=== PATIENT | female | born 1965 | race Caucasian/White ===

== ENCOUNTER 2019-01-24 13:13 | Outpatient (CLI) | payer MEDICAID, SELFPAY ==
[2019-01-24 13:52] LABS: Abs Immature Grans 0.02 k/cumm (0.0-0.09); Absolute Basophil Count 0.03 k/cumm (0.0-0.2); Absolute Eosinophil Count 0.19 k/cumm (0.0-0.7); Absolute Lymphocyte Count 2.11 k/cumm (1.2-3.4); Absolute Monocyte Count 0.64 k/cumm (0.11-0.7); Absolute Neutrophil Count 2.95 k/cumm (1.2-6.7); Basophils % 0.5; Eosinophils % 3.2; HGB 13.6 g/dL (12.0-15.5); Immature Grans % 0.3; Lymphocytes % 35.5; Mean Corp. HGB Concentration 33.2 g/dL (32.0-36.0); Mean Corpuscular Hemoglobin 29.8 pg (27.0-33.0); Mean Corpuscular Volume 89.9 fL (80-95); Mean Platelet Volume 9.9 fL (8.0-11.0); Monocytes % 10.8; Neutrophils % 49.7; Platelet Count 267 x1000/uL (130-400); RBC 4.56 m/cumm (4.00-5.20); RBC Distribution Width 12.7 % (11.7-14.6); White Blood Cell Count 5.94 k/cumm (4.4-10.8)
[2019-01-24 14:16] LABS: Iron 141 ug/dL (50-175); Total Iron Binding Capacity 267 ug/dL (250-450); Transferrin Sat 53 % (15-50)
[2019-01-24 14:48] LABS: ALT 29 U/L (12-78); AST 21 U/L (15-37); Albumin 3.9 g/dL (3.4-5.0); Alkaline Phosphatase 93 U/L (46-116); Anion Gap 8.4 mmol/L (3-11); BUN 12 mg/dL (7-18); Bilirubin, Total 0.4 mg/dL (0.2-1.0); CO2 28.6 mmol/L (21.0-32.0); Chloride 105 mmol/L (98-107); Cholesterol 231 mg/dL (50-200); Ferritin 94 ng/mL (8-388); Glucose 87 mg/dL (70-100); HDL Cholesterol 79 mg/dL (40-60); LDL CHOLESTEROL 130 mg/dL (<100); Magnesium 2.1 mg/dL (1.8-2.4); Potassium 4.4 mmol/L (3.5-5.1); Sodium 142 mmol/L (136-145); TSH 0.52 uIU/mL (0.358-3.74); Total Protein 7.3 g/dL (6.4-8.2); Triglyceride 66 mg/dL (30-150); Vitamin B12 680 pg/mL (193-986)
[2019-01-24 15:13] LABS: FREE T4 0.85 ng/dL (0.76-1.46)
[2019-01-24 21:23] LABS: T3,Free 4.1 pg/ml (2.8-5.3)
[2019-01-25 11:50] LABS: Thyroperoxidase Antibody <28 U/mL (<61)
[2019-01-25 13:20] LABS: Thyroglobulin Antibody 20 U/mL (<61)
[2019-01-25 20:59] LABS: Iodine, S 64 ng/mL (40-92)
[2019-01-28 16:45] LABS: Thyroid Stimulating Immunoglob <1.0 TSI index (<=1.3)
== END 2019-01-24 13:33 ==
PROVIDERS: PCP Naturopath; Visit Provider Naturopath
DX: R53.83 Other fatigue (principal); Z00.00 Encounter for general adult medical examination without abnormal findings
CPT/HCPCS: 36415; 80053; 80061; 83721; 82190; 82607; 82728; 83540; 83550; 83735; 84439; 84443; 84445; 84481; 85025; 86376; 86800

== ENCOUNTER 2019-02-19 16:39 | Emergency (ER) | payer MEDICAID, SELFPAY ==
[2019-02-19 16:43] VITALS: BP 130/73; PULSE 74; RESP 16; TEMP 36.6; O2SAT 100
--- NOTE | 2019-02-19 17:17 | DI.CT_ITS ---
SYMPTOM/DIAGNOSIS: LT ABD PAIN, MASS, FELL, INJURY ABDOMEN AND PELVIC CT: CT scan of the abdomen and pelvis was performed following the uneventful administration of intravenous contrast material. Comparison is made with 01/08/18. Dependent atelectatic changes are seen in the lung bases. The liver shows no evidence of a suspicious mass. The portal, superior mesenteric and splenic veins are patent. There are stones seen within the gallbladder. No biliary ductal dilatation is present. The pancreas and peripancreatic soft tissues are unremarkable as are the spleen and adrenal glands. The kidneys show normal and symmetric enhancement. No evidence of a solid renal mass or obstruction. The urinary bladder is intact. There are again seen uterine fibroids present. There is a large calcified uterine fibroid again noted. Prominent ovarian/gonadal veins are seen on the left. This may represent pelvic congestion syndrome. This was present on the prior examination. The aorta is of normal caliber. No significant abdominal or pelvic adenopathy, ascites or pneumoperitoneum is present. The bowel shows no evidence of obstruction or inflammation. A normal appendix is present in the right lower quadrant of the abdomen. No evidence of an acute or healing fracture or dislocation is present. Minimal pseudospondylolisthesis of L 4 on L 5 is again noted. IMPRESSION: No evidence of an acute abdomen. No acute or healing fracture or dislocation. Stable findings including cholelithiasis, fibroid uterus and prominent left ovarian veins. This latter raises the question of pelvic congestion syndrome.
--- NOTE | 2019-02-19 17:18 | W.ED.GENAD ---
Discharge Plan Disposition Patient Disposition: HOME Condition: Improving Discharge Details Chief Complaint: Abd Prob Clinical Impression: Uterine fibroid Primary Care Provider: Irma Espinoza ED Provider: Jeffrey Smith Home Meds and New Rx's Prescriptions: No Action No Known Home Meds RF: 0 Discharge Instructions Additional Instructions: Your CAT scan, as we discussed, revealed fibroids in the uterus; There is prominent left-sided venous varicosities of the pelvis; as well, you have degenerative changes of the spine at L4 and L5. I have asked our care management team to follow through with a referral to gynecology for recheck. Home to rest this evening. Return for worsening discomfort or any other acute concerns. Medical Decision Making 53-year-old female presents from home with complaints of greater than 2 months of left upper quadrant abdominal pain. She relates some of the discomfort to a fall she suffered with a rib injury greater than 1 year ago. She is noticed a mass in this area which she had evaluated by her natural path physician and was subsequent referred to the emergency department. She arrives with normal vital signs. Her exam is reassuring which this is left lower quadrant tenderness. Differential diagnosis includes intra-abdominal mass such as in the pancreas, healed rib fracture, must exclude underlying aortic pathology as this is one of the patient's concerns specifically. IV placed and screening labs and urinalysis obtained. Referred for CT scan. Labs are reassuring without significant acute finding. CT reveals venous varicosities in the left hemipelvis, may be pelvic congestion syndrome. She has a fibroid uterus. There is no evidence of displaced rib fracture. She does have degenerative changes of the spine at L4 and L5. Patient reassured. She will continue physical therapy for degenerative changes of the lumbar spine. I will refer her to gynecology for evaluation of pelvic congestion and uterine fibroid as she currently only sees a hybrid corn breeder. Lab Data Lab results reviewed: Yes I reviewed the patient's lab results. Laboratory Results - last 24 hr 02/19/19 02/19/19 02/19/19 17:21 17:21 17:21 WBC 9.52 RBC 5.00 Hgb 14.8 Hct 44.3 MCV 88.6 MCH 29.6 MCHC 33.4 RDW 12.6 Plt Count 331 MPV 9.9 Immature Gran % 0.2 Neutrophils % 64.2 Lymphocytes % 24.8 Monocytes % 8.1 Eosinophils % 2.3 Basophils % 0.4 Absolute Neutrophils 6.11 Absolute Lymphocytes 2.36 Absolute Monocytes 0.77 H Absolute Eosinophils 0.22 Absolute Basophils 0.04 Sodium 144 Potassium 3.6 Chloride 105 Carbon Dioxide 28.8 Anion Gap 10.2 BUN 12 Creatinine 0.58 Estimated GFR/1.73 m2 >= 60.00 Glucose 87 Calcium 10.2 H Total Bilirubin 0.3 AST 22 ALT 30 Alkaline Phosphatase 109 Total Protein 8.7 H Albumin 4.5 Lipase 142 Urine Color Yellow Urine Clarity Clear Urine pH 5.5 Ur Specific [place] 1.010 Urine Protein Negative Urine Ketones Negative Urine Blood Negative Urine Nitrite Negative Urine Bilirubin Negative Urine Urobilinogen 0.2 Ur Leukocyte Esterase Negative Urine Glucose Negative HPI General Mode of arrival: ambulatory. Date/Time Provider Initiated Documentation: 02/19/19 16:42. Limitations to Documentation: no limitations. Information obtained by: patient. History of Present Illness 53 year old F presents to the emergency department with the chief complaint of Left upper abdominal pain for greater than 2 months time., Quality is described as aching and dull, and is localized to the abdomen and left. Patient reports no radiation. Patient started experiencing this month(s) and it has been intermittent. No relieving factors improve symptom(s), No exacerbating factors reported . Patient notes no other symptoms.; denies cough, fever/chills, loss of appetite and nausea/vomiting. Patient did receive the following treatments prior to arrival, none Related Data Home Medications Medication Instructions Recorded Confirmed Unknown [No Known Home Meds] 02/19/19 02/19/19 Allergies Allergy/AdvReac Type Severity Reaction Status Date / Time No Known Allergies Allergy Unverified 02/19/19 16:49 General Stated Complaint: Abd Prob ASHWINI: 3 Review of Systems Review of Systems 6 systems reviewed and otherwise negative. Patient reports months of left-sided pain since fall with rib injury greater than 1 year PFSH Surgical History Repair, ACL Social History Smoking/Tobacco Use Status: Never Drug use: Never Do you feel safe at home: Yes Do you feel safe in your relationship?: Yes Exam Narrative Exam Narrative: GEN: awake, alert, oriented 3. Pleasant, well groomed, interactive. HEAD: Normocephalic, atraumatic ENT: Mucous membranes moist, oropharynx unremarkable, External ear exam unremarkable EYES: PERRL, EOMI NECK: Full ROM, no FABY, no menigismus CHEST/RESP: Nontender, clear to auscultation bilateral, no wheeze/rhonchi/rales CARDIOVASCULAR: RRR, no murmur, rub alden. 2+ Rad pulse bilateral ABDOMEN: Soft, tender left upper quadrant, no mass. +Bowel sounds EXT: Full ROM, no edema, no rash Neuro: Grossly normal neurologic exam, conversant, interactive. Psych: Speech fluent, thoughts congruent, affect normal Course Vital Signs Temperature 36.6 C 02/19/19 16:43 Pulse 74 02/19/19 16:43 Respiratory Rate 16 02/19/19 16:43 Blood Pressure 130/73 02/19/19 16:43 Pulse Oximetry 100 02/19/19 16:43 Temperature 36.6 C 02/19/19 16:43 Temperature Source Skin 02/19/19 16:43 Pulse 74 02/19/19 16:43 Respiratory Rate 16 02/19/19 16:43 Respiratory Effort Non-Labored 02/19/19 16:48 Blood Pressure 130/73 02/19/19 16:43 Blood Pressure Position Sitting 02/19/19 16:43 Pulse Oximetry 100 02/19/19 16:43 Oxygen Delivery Method Room Air 02/19/19 16:43 Oxygen Flow Rate 0 02/19/19 16:43 Pain Level 2 02/19/19 16:43
--- NOTE | 2019-02-19 17:21 | ED.GENADUL_ITS ---
Discharge Plan Disposition Patient Disposition: HOME Condition: Improving Discharge Details Chief Complaint: Abd Prob Clinical Impression: Uterine fibroid Primary Care Provider: Irma Espinoza ED Provider: Jeffrey Smith Home Meds and New Rx's Prescriptions: No Action No Known Home Meds RF: 0 Discharge Instructions Additional Instructions: Your CAT scan, as we discussed, revealed fibroids in the uterus; There is prominent left-sided venous varicosities of the pelvis; as well, you have degenerative changes of the spine at L4 and L5. I have asked our care management team to follow through with a referral to gynecology for recheck. Home to rest this evening. Return for worsening discomfort or any other acute concerns. Medical Decision Making 53-year-old female presents from home with complaints of greater than 2 months of left upper quadrant abdominal pain. She relates some of the discomfort to a fall she suffered with a rib injury greater than 1 year ago. She is noticed a mass in this area which she had evaluated by her natural path physician and was subsequent referred to the emergency department. She arrives with normal vital signs. Her exam is reassuring which this is left lower quadrant tenderness. Differential diagnosis includes intra-abdominal mass such as in the pancreas, healed rib fracture, must exclude underlying aortic pathology as this is one of the patient's concerns specifically. IV placed and screening labs and urinalysis obtained. Referred for CT scan. Labs are reassuring without significant acute finding. CT reveals venous varicosities in the left hemipelvis, may be pelvic congestion syndrome. She has a fibroid uterus. There is no evidence of displaced rib fracture. She does have degenerative changes of the spine at L4 and L5. Patient reassured. She will continue physical therapy for degenerative changes of the lumbar spine. I will refer her to gynecology for evaluation of pelvic congestion and uterine fibroid as she currently only sees a spike machine heater. Lab Data Lab results reviewed: Yes I reviewed the patient's lab results. Laboratory Results - last 24 hr 02/19/19 02/19/19 02/19/19 17:21 17:21 17:21 WBC 9.52 RBC 5.00 Hgb 14.8 Hct 44.3 MCV 88.6 MCH 29.6 MCHC 33.4 RDW 12.6 Plt Count 331 MPV 9.9 Immature Gran % 0.2 Neutrophils % 64.2 Lymphocytes % 24.8 Monocytes % 8.1 Eosinophils % 2.3 Basophils % 0.4 Absolute Neutrophils 6.11 Absolute Lymphocytes 2.36 Absolute Monocytes 0.77 H Absolute Eosinophils 0.22 Absolute Basophils 0.04 Sodium 144 Potassium 3.6 Chloride 105 Carbon Dioxide 28.8 Anion Gap 10.2 BUN 12 Creatinine 0.58 Estimated GFR/1.73 m2 >= 60.00 Glucose 87 Calcium 10.2 H Total Bilirubin 0.3 AST 22 ALT 30 Alkaline Phosphatase 109 Total Protein 8.7 H Albumin 4.5 Lipase 142 Urine Color Yellow Urine Clarity Clear Urine pH 5.5 Ur Specific [place] 1.010 Urine Protein Negative Urine Ketones Negative Urine Blood Negative Urine Nitrite Negative Urine Bilirubin Negative Urine Urobilinogen 0.2 Ur Leukocyte Esterase Negative Urine Glucose Negative HPI General Mode of arrival: ambulatory . Date/Time Provider Initiated Documentation: 02/19/19 16:42 . Limitations to Documentation: no limitations . Information obtained by: patient . History of Present Illness 53 year old F presents to the emergency department with the chief complaint of Left upper abdominal pain for greater than 2 months time., Quality is described as aching and dull, and is localized to the abdomen and left. Patient reports no radiation. Patient started experiencing this month(s) and it has been intermittent. No relieving factors improve symptom(s), No exacerbating factors reported . Patient notes no other symptoms.; denies cough, fever/chills, loss of appetite and nausea/vomiting. Patient did receive the following treatments prior to arrival, none Related Data Home Medications Medication Instructions Recorded Confirmed Unknown [No Known Home Meds] 02/19/19 02/19/19 Allergies Allergy/AdvReac Type Severity Reaction Status Date / Time No Known Allergies Allergy Unverified 02/19/19 16:49 General Stated Complaint: Abd Prob ASHWINI: 3 Review of Systems Review of Systems 6 systems reviewed and otherwise negative. Patient reports months of left-sided pain since fall with rib injury greater than 1 year PFSH Surgical History Repair, ACL Social History Smoking/Tobacco Use Status: Never Drug use: Never Do you feel safe at home: Yes Do you feel safe in your relationship?: Yes Exam Narrative Exam Narrative: GEN: awake, alert, oriented 3. Pleasant, well groomed, interactive. HEAD: Normocephalic, atraumatic ENT: Mucous membranes moist, oropharynx unremarkable, External ear exam unremarkable EYES: PERRL, EOMI NECK: Full ROM, no FABY, no menigismus CHEST/RESP: Nontender, clear to auscultation bilateral, no wheeze/rhonchi/rales CARDIOVASCULAR: RRR, no murmur, rub alden. 2+ Rad pulse bilateral ABDOMEN: Soft, tender left upper quadrant, no mass. +Bowel sounds EXT: Full ROM, no edema, no rash Neuro: Grossly normal neurologic exam, conversant, interactive. Psych: Speech fluent, thoughts congruent, affect normal Course Vital Signs Temperature 36.6 C 02/19/19 16:43 Pulse 74 02/19/19 16:43 Respiratory Rate 16 02/19/19 16:43 Blood Pressure 130/73 02/19/19 16:43 Pulse Oximetry 100 02/19/19 16:43 Temperature 36.6 C 02/19/19 16:43 Temperature Source Skin 02/19/19 16:43 Pulse 74 02/19/19 16:43 Respiratory Rate 16 02/19/19 16:43 Respiratory Effort Non-Labored 02/19/19 16:48 Blood Pressure 130/73 02/19/19 16:43 Blood Pressure Position Sitting 02/19/19 16:43 Pulse Oximetry 100 02/19/19 16:43 Oxygen Delivery Method Room Air 02/19/19 16:43 Oxygen Flow Rate 0 02/19/19 16:43 Pain Level 2 02/19/19 16:43
[2019-02-19 17:33] LABS: Bilirubin Negative (Negative); Blood Negative (Negative); Clarity Clear; Glucose Negative (Negative); Ketones Negative (Negative); Leukocyte Esterase Negative (Negative); Nitrite Negative (Negative); Urobilinogen 0.2 EU/dL (Up TO 0.2); pH 5.5 (5-8)
[2019-02-19 17:34] LABS: Abs Immature Grans 0.02 k/cumm (0.0-0.09); Absolute Basophil Count 0.04 k/cumm (0.0-0.2); Absolute Eosinophil Count 0.22 k/cumm (0.0-0.7); Absolute Lymphocyte Count 2.36 k/cumm (1.2-3.4); Absolute Monocyte Count 0.77 k/cumm (0.11-0.7); Absolute Neutrophil Count 6.11 k/cumm (1.2-6.7); Basophils % 0.4; Eosinophils % 2.3; HCT 44.3 % (36.0-46.0); HGB 14.8 g/dL (12.0-15.5); Immature Grans % 0.2; Lymphocytes % 24.8; Mean Corp. HGB Concentration 33.4 g/dL (32.0-36.0); Mean Corpuscular Hemoglobin 29.6 pg (27.0-33.0); Mean Corpuscular Volume 88.6 fL (80-95); Mean Platelet Volume 9.9 fL (8.0-11.0); Monocytes % 8.1; Neutrophils % 64.2; Platelet Count 331 x1000/uL (130-400); RBC Distribution Width 12.6 % (11.7-14.6); White Blood Cell Count 9.52 k/cumm (4.4-10.8)
[2019-02-19 17:48] LABS: ALT 30 U/L (12-78); AST 22 U/L (15-37); Albumin 4.5 g/dL (3.4-5.0); Alkaline Phosphatase 109 U/L (46-116); Anion Gap 10.2 mmol/L (3-11); BUN 12 mg/dL (7-18); Bilirubin, Total 0.3 mg/dL (0.2-1.0); CO2 28.8 mmol/L (21.0-32.0); CREATININE 0.58 mg/dL (0.55-1.02); Calcium 10.2 mg/dL (8.5-10.1); Chloride 105 mmol/L (98-107); Glucose 87 mg/dL (70-100); Lipase 142 U/L (73-393); Potassium 3.6 mmol/L (3.5-5.1); Sodium 144 mmol/L (136-145); Total Protein 8.7 g/dL (6.4-8.2)
[2019-02-19] MEDS: Omnipaque 350 MG/ML 100 ML BTL IV (18:03)
--- NOTE | 2019-02-19 18:58 | DI.VRAD_ITS ---
EXAM: CT Abdomen and Pelvis With Contrast EXAM DATE/TIME: 02/19/2019 5:18 PM CLINICAL HISTORY: 53 years old, female; Signs and symptoms; Other: L abd pain, 'mass', fall and rib injury distant. ; Additional info: L abd pain, 'mass', fall and rib injury distant. Skin marker on the frontal rib area . TECHNIQUE: Imaging protocol: Axial computed tomography images of the abdomen and pelvis with intravenous contrast. Coronal and sagittal reformatted images were created and reviewed. Radiation optimization: All CT scans at this facility use at least one of these dose optimization techniques: automated exposure control; mA and/or kV adjustment per patient size (includes targeted exams where dose is matched to clinical indication); or iterative reconstruction. Contrast material: omnipaque 350 Contrast volume: 100 ml Contrast route: iv COMPARISON: CT ABD PELVIS WITH CONTRAST 01/08/2018 11:39 AM FINDINGS: Lower thorax: Minimal dependent atelectasis is seen the lung bases. Pleural effusion is not seen. ABDOMEN: Liver: Right hepatic lobe is long. There is no evidence of a discrete intrahepatic mass. Gallbladder and bile ducts: Gallstones are noted. There is no evidence of gallbladder wall thickening, pericholecystic fluid nor evidence of biliary ductal dilatation. Pancreas: Pancreas unremarkable Spleen: Spleen is unremarkable Adrenals: Adrenals are unremarkable. Kidneys and ureters: There are no radiopaque urinary tract calculi. There is no evidence of hydronephrosis. Kidneys are unchanged Stomach and bowel: Evaluation of the bowel is limited in the absence of oral contrast but there is no evidence of obstruction, mass or pneumatosis. Appendix: There is no evidence of acute appendicitis. PELVIS: Bladder: Bladder is unchanged. Reproductive: The uterus is anteverted. Uterine fibroids are noted, there is a calcified intramural fibroid which measures approximately 2.4 cm MR on series 4 image 72. There is prominence of the left gonadal/ovarian vein with prominent venous structures/varicosities in the left hemipelvis. This was previously identified. There is no new adnexal abnormality ABDOMEN and PELVIS: Intraperitoneal space: No free fluid or focal collections or free intraperitoneal air Bones/joints: There is grade 1 anterolisthesis of L4 and L5. There are mild bulge and spondylitic changes of the endplates and facet arthropathy. Degenerative changes lead to narrowing of the canal/stenosis most prominent at L4-5. There is no acute or destructive bony abnormality identified. The visualized lower ribs are intact. There is no evidence of significant or displaced rib fracture. Soft tissues: No significant subcutaneous abnormality is identified. There is a small fat containing umbilical hernia. Vasculature: The abdominal aorta is nonaneurysmal. There is no acute aortic abnormality. Lymph nodes: No significant adenopathy IMPRESSION: 1. Prominent left ovarian vein and venous varicosities in the left hemipelvis. Findings could be related to pelvic congestion syndrome. This was also noted on the patient's prior exam. 2. Lobulated fibroid uterus. 3. No acute fracture. No evidence of a significant or displaced rib fracture. 4. Cholelithiasis without evidence of biliary ductal dilatation. Dictated and Authenticated by: Jaquelin Luu MD. Ordering:KARYN Murphy MD
--- NOTE | 2019-02-20 10:01 | PDOC.ERCMPRO ---
Care Management Progress Note 02/20-Dr. Smith requested assistance with an pipe threading machine operator f/u in 2-4 weeks for fibroids/pelvic congestion. Referral faxed to [facility] this am.
--- NOTE | 2019-02-20 10:17 | CMPROGNOTE_ITS ---
Care Management Progress Note 02/20-Dr. Smith requested assistance with an safety council director f/u in 2-4 weeks for fibroids/pelvic congestion. Referral faxed to [facility] this am.
== END 2019-02-19 19:40 | disposition home or self-care (01) ==
PROVIDERS: Emergency Provider Emergency Medicine; PCP Naturopath
DX: D25.9 Leiomyoma of uterus, unspecified (principal)
CPT/HCPCS: 36415; 80053; 81025; 83690; 99285; 74177; 81003; 85025; 99284; J3490

== ENCOUNTER 2019-04-12 12:05 | Outpatient (REF) | payer MEDICAID, SELFPAY ==
--- NOTE | 2019-04-12 11:50 | PAPFT_PTH ---
PATIENT: WINSTON HAYNES LOC: [facility] U#:[id number] AGE/SX: 53/F ROOM: RE04/12/[address]: Karina Wiseman : 1965 BED: DIS: 04/12/2019 SPEC #: [id number] RECD: 04/12/19 12:58 STATUS: JOHN REQ #: [id number] LEONARDO: 04/12/19 11:[address]: Karina Wiseman DEPT: [facility] Cytology RECD BY: Juana Jensen ENTERED: 04/12/19 12:58 SP TYPE: PAPFT OTHR DR: Irma Espinoza Tissues: 1 - CX/ENDOCX FOR PAP SMEARS Procedures: PAP THIN PREP/[facility] Screening Comments: [id number] (UNSATISFACTORY FOR EVALUATION)
== END 2019-04-12 12:25 ==
LOC: LBN 12:05
PROVIDERS: PCP Naturopath; Visit Provider Obstetrics & Gynecology Gynecology
DX: Z12.4 Encounter for screening for malignant neoplasm of cervix (principal); Z11.51 Encounter for screening for human papillomavirus (HPV)
CPT/HCPCS: 88142; 87624